=== PATIENT | female | born 1985 | race African-American/Black ===

== ENCOUNTER 2016-08-14 17:04 | Inpatient (IN) | payer OTHER ==
--- NOTE | ~2016-08-14 | HP ---
History And Physical [address] [id number] [facility] [place]. [address] NAME: SACHIN QUIROZ : 87 STATUS : ADM IN [facility]#: [id number] AGE: 31 ADM/REG DATE : 08/14/16 MR#: [id number] REPORT SERV DATE: 08/14/16 DICTATED BY: WILFREDO ORTEGA DATE: 08/14/16 REPORT STATUS : Draft TRANSCRIBED BY: MODL DATE: 08/14/16 DATE OF ADMISSION: 08/14/2016 IDENTIFYING DATA: A 31-year-old -Honduran female, who has no current PCP. CHIEF COMPLAINT: Headache, right-side facial and arm numbness. HISTORY OF PRESENT ILLNESS: This history of present illness is obtained by talking with the patient as well as her at bedside as well as speaking to the ER provider and reviewing the ER chart and [employer]. The patient states three days ago, she developed some numbness that was on her right lateral tongue and right lips. It was a tingling sensation that lasts for several hours. She states she was using some type of oil with a candle and she thought it was related to something she might have gotten on her skin. So, she washed her hands and says that it seems like her feeling return in the right side of her face. However, she noticed then they have returned with numbness of right side of her face, right-sided scalp, right side shoulder, and entire arm as a tingling, numb sensation. She states she has never had this before. It is not affecting her anywhere else. She is not having trouble with speech or swallowing or ambulation. REVIEW OF SYSTEMS: On review of systems, she states that she has had dryness in her throat and some soreness in the right side of her throat. She has also had some discomfort in her right ear and some possible decreased hearing in the right ear. Again, she has never had anything like this before. No history of head trauma. No history of seizures. She has had occasional palpitations. She has had some nausea and leg cramps. She states she has new eyeglasses. She denies any fever, chest pain, shortness of breath, abdominal pain, vomiting, diarrhea, rectal bleeding, melena, dysuria, urinary hesitancy, edema, rash, tick bites, weight changes, or hearing changes other than her right ear possibly. ALLERGIES: SHE STATES SHE IS ALLERGIC TO LATEX. PAST MEDICAL HISTORY: She denies any history of diabetes, hypertension, COPD, heart disease, stroke, seizure, peptic ulcer, biliary tract disease, liver disease, chronic kidney disease, kidney stones, thyroid disease, cancer or sleep apnea. 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 She states she was told that she had a lupus anticoagulant clotting factor and was put on aspirin. She states she had asthma as a child. HOME MEDICATIONS: Aspirin 81 mg daily, tivs-iwq-tnrobtc allergy relief tablet once a day. PAST SURGICAL HISTORY: She has had D and Cs and a right wrist cyst removed. SOCIAL HISTORY: She smokes one-half pack per day. She drinks two to three beers per day. History And Physical [address] [address] NAME: SACHIN QUIROZ : 87 STATUS : ADM IN [facility]#: [id number] AGE: 31 ADM/REG DATE : 08/14/16 MR#: [id number] REPORT SERV DATE: 08/14/16 DICTATED BY: WILFREDO ORTEGA DATE: 08/14/16 REPORT STATUS : Draft TRANSCRIBED BY: PRISCA DATE: 08/14/16 She is . She does work cleaning. FAMILY HISTORY: Mother with hypertension. Father reportedly had a stroke at age 19. Siblings reportedly healthy. DIAGNOSTIC DATA: Chest x-ray done as a PA and lateral film in the emergency room reveals normal clear lung jaffe. Normal cardiac silhouette. Normal bony architecture per my interpretation. EKG done today at 1434 hours reveals normal sinus rhythm and a completely normal EKG per my interpretation. CT scan of the brain without contrast interpreted by the radiologist as being normal. Sodium 140, potassium 3.4, chloride 104, CO2 is 25, BUN 9, creatinine 0.59, glucose 75, calcium 8.9. The CMP is normal. Troponin, less than 0.02. Urine test, negative. White count is 7.7, hemoglobin 14.5, platelets 332,000, protime is 14.5, INR 1.1. PTT is 37.6. PHYSICAL EXAMINATION: VITAL SIGNS: Temperature is 98, pulse 100, respirations 18, blood pressure 125/90, O2 saturation is 97% on room air. GENERAL: A well-developed young female, who at this time is tearful, but in no acute distress otherwise. HEENT: Head is atraumatic. Pupils are equal, round, and reactive to light. Extraocular motions are intact. She is wearing colored contacts. Ear canals and TMs normal. Normal hearing bilaterally. No inflammatory changes noted externally. Nose, noninflamed externally. Septum, midline. Nares, patent. Mouth, moist. Good gag. No redness of the throat, gums, or lips. NECK: Supple. No lymph node or thyroid enlargement. The carotids have good pulses. No bruits. I do not notice any inflammatory changes on the neck either side. LUNGS: Clear good air flow. No wheezes. No rhonchi. Normal respiratory effort. HEART: Regular without gallop, click, murmur, or rub. ABDOMEN: Bowel sounds positive. Soft, flat, nondistended, nontender. No masses. No organomegaly. EXTREMITIES: Warm. Good pulses. No clubbing. No cyanosis. No edema. NEUROLOGIC: She is alert, oriented, cooperative. She is tearful. She states she is crying because she does not know whether she is willing to stay or not. Her motor strength is 5/5 in all four extremities. No Babinski. No clonus noted. Myatll-xc-fmad testing, normal. Rapid alternating motion of the hands, normal. Balance and gait, normal. Sensation, she describes decreased sensation in the right arm circumferentially compared to the left, same with a lower face. Upper face is symmetrical and normal. No Babinski. No clonus noted. ASSESSMENT: 1. Right side upper extremity numbness. Differential diagnoses:. a. Transient ischemic attack versus cerebrovascular accident. b. Complicated migraine. c. Anxiety with conversion disorder. d. Tumor with mass effect, less likely. 2. History of multiple miscarriages and report of possible previous lupus anticoagulant. History And Physical [address] [address] NAME: SACHIN QUIROZ : 87 STATUS : ADM IN [facility]#: [id number] AGE: 31 ADM/REG DATE : 08/14/16 MR#: [id number] REPORT SERV DATE: 08/14/16 DICTATED BY: WILFREDO ORTEGA DATE: 08/14/16 REPORT STATUS : Draft TRANSCRIBED BY: PRISCA DATE: 08/14/16 3. Childhood asthma. 4. Hypokalemia. PLAN: 1. Admit to the hospital on telemetry. 2. Get MRI and MRA of the brain and MRA of the neck. 3. We will do an echocardiogram. We will ask Neurologist here. 4. We will check a strep screen because she complains of throat pain. We will replace her potassium. 5. We will check a urine drug screen. 6. We will follow up her PTT because it was mildly elevated. QUIQUE/PRISCA Wilfredo Ortega M.D. / [id number]
--- NOTE | ~2016-08-14 | CN ---
Consultation Report [facility] [address] [place]. [address] NAME: SACHIN QUIROZ : [birth year] STATUS : ADM IN PAT#: [id number] AGE: 31 ADM/REG DATE : 08/14/16 MR#: [id number] REPORT SERV DATE: 08/15/16 DICTATED BY: DATE: REPORT STATUS : Draft TRANSCRIBED BY: MODL DATE: 08/15/16 NEUROLOGY CONSULTATION DATE OF CONSULTATION: 08/15/2016 REASON FOR CONSULT: Headache as well as right-sided numbness. HISTORY OF PRESENT ILLNESS: This is a 31-year-old female, presented to [facility] on 08/14/2016 secondary to the patient reported acute onset of numbness around 5 o'clock with the patient reports numbness in the right side of face as well as right arm. Symptoms started roughly 5 a.m. The patient prior to that was noted to have episodic numbness in the right side of the face as well as right-sided arm. The patient otherwise denies any diplopia, vision difficulties, and denies any dysarthria or dysphagia. Denies any weakness and denies any gait abnormality. The patient reports symptoms resolved overnight, but currently having headache on the right side of the face as well as neck. Described the pain as a pressure-like headache with mild photophobia, but denies phonophobia with some nausea over the past week. The patient reports alternating hot and cold sensation, but otherwise denies any fevers and denies any chest pain or shortness of breath prior to the hospitalization and denies any recent illness. The patient denies similar symptoms in the past. Of note, she does have a history of multiple miscarriages in the past and previous diagnosis with the lupus anticoagulant disorder and was advised to be on aspirin. The patient does not take any control pills. The patient denies any previous history of DVTs and denies any family history of clotting disorders, DVTs, or anticoagulation usage. The patient does not have any history of sickle cell disease with sickle cell attack in the past. REVIEW OF SYSTEMS: Negative except for those mentioned in the HPI. The patient reports allergy to latex. PAST MEDICAL HISTORY: Significant for lupus anticoagulant disorder, diagnosed by high school tutor/GYN with the patient has had previous history of genetic testing which according to the patient has been negative. The patient in addition was also noted to have multiple miscarriages in the past. She currently does not take any control medication. MEDICATIONS: Home medications consist of aspirin as well as oaax-car-fstfxeb allergy relief once a day as needed. The patient denies the control usage and denies any history of anticoagulation usage. SOCIAL HISTORY: The patient's social history reports the tobacco usage, half a pack per day, two- to three-beer drinking per day. FAMILY HISTORY: Significant for hypertension with the patient's father reportedly noted to have stroke at age 19. No family history of DVT. No family history of premature heart attacks. The patient's maternal grandmother was noted to have a history of lung cancer. Consultation Report [place] [id number] [facility]. [address] NAME: SACHIN QUIROZ : [birth year] STATUS : ADM IN [facility]#: [id number] AGE: 31 ADM/REG DATE : 08/14/16 MR#: [id number] REPORT SERV DATE: 08/15/16 DICTATED BY: DATE: REPORT STATUS : Draft TRANSCRIBED BY: MODL DATE: 08/15/16 REVIEW OF SYSTEMS: Negative except for those mentioned in the HPI. PHYSICAL EXAMINATION: VITAL SIGNS: Overnight, the patient was noted to have vital signs with T-max of 98.2, heart rate of 77 to 91, respiration of 16 to 22, blood pressure of 120 to 126 over 72 to 75. GENERAL: The patient is a well developed, well nourished, no acute distress. CARDIOVASCULAR: Regular rate and rhythm. No carotid bruits were otherwise auscultated. PULMONARY: Clear to auscultation bilaterally. NEUROLOGICAL EXAMINATION: Generally, the patient is alert and oriented to person, place, year, and month and follows simple and two-step commands. No dysarthria. No aphasia was noted at the time of evaluation. Intact registration and recall. Cranial nerves II to XII, pupil were round reactive to light. Extraocular eye movement was noted to be intact with intact peripheral vision. Symmetrical facial expression. Sensation midline. Tongue normal. Normal palatal movement. Normal hearing. The patient demonstrated 5/5 bilateral upper and lower extremity strength. Normal muscle, bulk, and tone. Deep tendon reflex was 2+ throughout. Symmetrical sensation bilaterally. Normal uvkkrg-on-eoly examination without ataxia. The patient demonstrated normal station and stable gait. LABORATORY STUDIES: Demonstrated white blood cell count of 10.3, hemoglobin of 13.9, hematocrit of 40.6, platelet count of 305. INR of 1.2. Chemistry panel: Sodium 140, potassium 3.4, chloride of 104, bicarb of 25, BUN of 9, creatinine 0.59, glucose of 75, calcium of 8.9. Serum cholesterol of 203, HDL of 56, LDL of 131, triglyceride of 82. Hemoglobin A1c of 5.1. Serum TSH of 0.832 and serum HCG is negative. The patient was noted to have urine drug screen positive for opiates, but otherwise negative. Urinalysis demonstrated negative leukocyte esterase, negative nitrite. CT scan of the brain is otherwise negative. IMPRESSION: 1. Headache. 2. The patient was noted to have a pressure-like headache on the right side of the head with mild photophobia and nausea at the time of evaluation. Otherwise, the patient's right-sided numbness has since resolved with NIH Stroke Scale of 0, concern for possible stroke secondary to hypercoagulable state versus of venous sinus thrombosis versus complex migraine. We will continue aspirin for now. We will continue Lipitor. We will check MRI as well as MRV of the head. We will start the patient on Depakote 125 mg IV b.i.d. for headache. 3. Tobacco abuse. Counseled the patient regarding smoking cessation. RECOMMENDATION: 1. MRI of the brain. 2. MRV of the head. Consultation Report [address] [place]. [address] NAME: SACHIN QUIROZ : 87 STATUS : ADM IN [facility]#: [id number] AGE: 31 ADM/REG DATE : 08/14/16 MR#: [id number] REPORT SERV DATE: 08/15/16 DICTATED BY: DATE: REPORT STATUS : Draft TRANSCRIBED BY: MODL DATE: 08/15/16 3. NICOLÁS, double-stranded DNA complement C3-C4 and intact cardiolipin antibodies. 4. Aspirin and Lipitor. 5. Carotid Doppler study and echocardiogram pending. 6. Depakote 125 mg IV b.i.d. [facility] Presley Alegria MD / [id number] CC: Lucho Ortega M.D.
--- NOTE | ~2016-08-14 | DS ---
Discharge Summary [facility] [address] [place]. [address] NAME: SACHIN QUIROZ : 87 STATUS : DIS IN PAT#: [id number] AGE: 31 ADM/REG DATE : 08/14/16 MR#: [id number] REPORT SERV DATE: 08/17/16 DICTATED BY: WILFREDO ORTGEA DATE: 08/16/16 REPORT STATUS : Draft TRANSCRIBED BY: MODL DATE: 08/16/16 ADMISSION DATE: 08/14/2016 DISCHARGE DATE: 08/16/2016 CONSULTANTS: Dr. Alegria, Neurology. DISCHARGE DIAGNOSES: 1. Acute right-sided headache with numbness right arm and right face. 2. 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 3. Childhood asthma. 4. Viral upper respiratory tract infection versus asthmatic rhinitis. HISTORY: This patient presented to the emergency room at [facility] describing three days of headache along with numbness on the right lateral tongue, right lateral lips, face and neck, and right upper arm. Because of this, she was referred to our team for inpatient care. The patient also has a history of multiple miscarriages in the past. She also states she was told by her SENIOR RESEARCH SCIENTIST that she had lupus anticoagulant and was placed on aspirin. The patient has no history of DVT or pulmonary emboli or strokes or other thrombotic events. HOSPITAL COURSE: She was placed on telemetry. She had a CT scan of the brain without contrast, which was normal. She underwent MRI of the brain which was normal. She had an MRV of the brain which was normal other than some mild diffuse sinusitis without air fluid levels. Neurology wanted to repeat the hypercoagulable lab tests so anticardiolipin antibodies, double-stranded DNA have been ordered along with NICOLÁS. These are still pending at this time. Complement 3 and complement 4 levels were normal. TSH was normal. Creatinine is normal. The patient's numbness resolved. The patient had some headache. Dr. Alegria gave her some Depakote intravenously which seemed to help. The patient had some nasal congestion, some sneezing, some postnasal drainage, and cough. No fever. She was given some Claritin and Flonase for this. We are recommending she establish with a local PCP for longitudinal followup. Her urine test was negative. Since she is not now, and she has no history of actual thrombotic event, we are recommending she stay on just the aspirin for the anti- phospholipid antibody that is suspected. Dr. Alegria has asked for her to stay on Lipitor for the possibility that this was a TIA and secondary prophylaxis. DISCHARGE MEDICATIONS: Her discharge medications will be aspirin 81 mg daily, Lipitor 80 mg at bedtime, Flonase nasal spray b.i.d., Claritin 10 mg daily, and Dr. Alegria has not yet decided whether she is going to recommend the patient to take any Depakote orally, she can otherwise take Tylenol. Discharge Summary [address] [address] NAME: ASCHIN QUIROZ : 87 STATUS : DIS IN PAT#: [id number] AGE: 31 ADM/REG DATE : 08/14/16 MR#: [id number] REPORT SERV DATE: 08/17/16 DICTATED BY: WILFREDO ORTEGA DATE: 08/16/16 REPORT STATUS : Draft TRANSCRIBED BY: PRISCA DATE: 08/16/16 QUIQUE/PRISCA Wilfredo Ortega M.D. / [id number] CC: Wilfredo Ortega M.D.
[2016-08-14 15:27] LABS: BASOPHILS 0.6 %; BASOPHILS ABSOLUTE 0.05 10/3/uL (0.0-0.16); EOSINOPHILS 0.9 %; EOSINOPHILS ABSOLUTE 0.07 10/3/uL (0.0-0.53); HEMOGLOBIN 14.5 g/dL (12.0-16.0); IMMATURE GRANULOCYTES 0.1 %; IMMATURE GRANULOCYTES ABSOLUTE 0.01 10/3/uL (0.0-0.11); LYMPHOCYTES 15.3 %; LYMPHOCYTES ABSOLUTE 1.18 10/3/uL (0.67-4.30); MEAN CORPUSCULAR HEMOGLOB 30.5 pg (26.0-34.0); MEAN PLATELET VOLUME 10.7 fL (9.2-13.0); MONOCYTES 6.6 %; MONOCYTES ABSOLUTE 0.51 10/3/uL (0.21-1.20); NEUTROPHILS 76.5 %; NEUTROPHILS ABSOLUTE 5.91 10/3/uL (2.02-8.40); PLATELET COUNT 332 10/3/uL (150-400); RBC DISTRIBUTION WIDTH 13.5 % (12.0-16.0); RED CELL COUNT 4.75 10/6/uL (4.0-5.6)
[2016-08-14 15:28] LABS: ER CBC TAT 0 Hrs 07 Mins; HEMATOCRIT 42.7 % (36.0-48.0); MANUAL DIFF NO %; MEAN CORPUSCULAR VOLUME 89.9 fL (80-100); WHITE BLOOD CELLS 7.7 10/3/uL (4.5-10.5)
[2016-08-14 15:34] LABS: INTERNATIONAL NORMAL RATI 1.1 UNITS (-); PARTIAL THROMBO TIME 37.6 SEC (22.5-37.2); PROTIME (NOT ORD) 14.5 SEC (12.0-14.5)
[2016-08-14 15:43] LABS: ALBUMIN 4.2 G/DL (3.5-5.0); ALKALINE PHOSPHATASE 107 U/L (45-117); BUN (BLOOD UREA NITROGEN) 9 MG/DL (6-23); CALCIUM, SERUM 8.9 MG/DL (8.5-10.4); CHLORIDE, SERUM 104 MMOL/L (96-112); CO2 (CARBON DIOXIDE) 25 MMOL/L (24-34); CREATININE 0.59 MG/DL (0.55-1.02); GFR AFRICAN AMERICAN 143 ML/MIN (>=60); GFR NON AFRICAN AMERICAN 123 ML/MIN (>=60); GLOBULIN 4.1 G/DL (2.5-4.1); GLUCOSE, SERUM 75 MG/DL (60-99); POTASSIUM, SERUM 3.4 MMOL/L (3.5-5.3); SGOT(AST) 8 U/L (5-40); SGPT(ALT) 15 U/L (5-65); SODIUM, SERUM 140 MMOL/L (135-148); TOTAL BILIRUBIN 1.1 MG/DL (0-1.2); TOTAL PROTEIN 8.3 G/DL (6.0-8.5); TROPONIN I <0.02 NG/ML (<0.05)
[2016-08-14] MEDS ORDERED: ALLERGY RELIEF OTC PO (17:26)
[2016-08-14] MEDS ORDERED: HALF81 PO (17:26)
[2016-08-15 00:21] LABS: BASOPHILS 0.7 %; BASOPHILS ABSOLUTE 0.07 10/3/uL (0.0-0.16); EOSINOPHILS 2.1 %; EOSINOPHILS ABSOLUTE 0.22 10/3/uL (0.0-0.53); HEMATOCRIT 40.6 % (36.0-48.0); HEMOGLOBIN 13.9 g/dL (12.0-16.0); IMMATURE GRANULOCYTES 0.2 %; IMMATURE GRANULOCYTES ABSOLUTE 0.02 10/3/uL (0.0-0.11); LYMPHOCYTES 13.3 %; LYMPHOCYTES ABSOLUTE 1.37 10/3/uL (0.67-4.30); MEAN CORPUS HGB CONC 34.2 g/dL (32.0-36.0); MEAN CORPUSCULAR VOLUME 90.4 fL (80-100); MEAN PLATELET VOLUME 10.9 fL (9.2-13.0); MONOCYTES 5.7 %; MONOCYTES ABSOLUTE 0.59 10/3/uL (0.21-1.20); NEUTROPHILS ABSOLUTE 8.04 10/3/uL (2.02-8.40); PLATELET COUNT 305 10/3/uL (150-400); RBC DISTRIBUTION WIDTH 13.8 % (12.0-16.0); RED CELL COUNT 4.49 10/6/uL (4.0-5.6); WHITE BLOOD CELLS 10.3 10/3/uL (4.5-10.5)
[2016-08-15 00:31] LABS: MANUAL DIFF NO %
[2016-08-15 00:43] LABS: CHOL/HDL RATIO(NOT ORDER) 3.6 (0-5); CHOLESTEROL 203 MG/DL (< 200); CPK (IF ELEVATED MB BANDS) 97 U/L (0-200); HDL CHOLESTEROL 56 MG/DL (> 49); LDL CHOLESTEROL 131 MG/DL (< 130); NON-HDL CHOLESTEROL 147 MG/DL (< 160); TRIGLYCERIDE 82 MG/DL (< 150); TROPONIN I <0.02 NG/ML (<0.05); ULTRASENSITIVE TSH 0.832 MCIU/ML (0.358-3.740)
[2016-08-15 04:05] LABS: ASCORBIC ACID (UR NOT ORDER) NEG (NEG); BILIRUBIN, URINE NEGATIVE (NEG); KETONE, URINE TRACE MG/DL (NEG); LEUKOCYTE ESTERASE(NOT OR NEG (NEG); WBC (NOT ORDERED) (RFLEX) < 1 (0-5)
[2016-08-15 04:33] LABS: AMPHETAMINES (NOT ORD) NEG (NEG); BARBITURATES (NOT ORDERED NEG (NEG); BENZODIAZEPINES (NOT ORD) NEG (NEG); CANNABINOIDS (THC) NEG (NEG); COCAINE (NOT ORDERED) NEG (NEG); OPIATES POS (NEG); PHENCYCLIDINE(PCP) NEG (NEG); TRICYCLICS NEG (NEG)
[2016-08-15 09:26] LABS: INTERNATIONAL NORMAL RATI 1.2 UNITS (-); PARTIAL THROMBO TIME 37.8 SEC (22.5-37.2); PROTIME (NOT ORD) 15.2 SEC (12.0-14.5)
[2016-08-15 10:30] LABS: CPK (IF ELEVATED MB BANDS) 92 U/L (0-200); POTASSIUM, SERUM 3.8 MMOL/L (3.5-5.3); TROPONIN I <0.02 NG/ML (<0.05)
[2016-08-16 06:37] LABS: COMPLEMENT C4 24.9 MG/DL (16-47)
[2016-08-16 11:38] LABS: ANA TITER <1:40 TITER
[2016-08-16] MEDS ORDERED: TOPAMAX25 PO (19:40)
[2016-08-16] MEDS ORDERED: FLONASE (20:01)
== END 2016-08-16 22:00 | disposition home or self-care (01) | DRG 69 ==
LOC: ER 17:04 → 1SO 20:34
PROVIDERS: Hospitalist; Physician Assistant; Psychiatry & Neurology Neurology
DX: G45.9 Transient cerebral ischemic attack, unspecified (principal); D68.61 Antiphospholipid syndrome; G43.109 Migraine with aura, not intractable, without status migrainosus; E87.6 Hypokalemia; F41.9 Anxiety disorder, unspecified; J45.909 Unspecified asthma, uncomplicated; J06.9 Acute upper respiratory infection, unspecified; F17.210 Nicotine dependence, cigarettes, uncomplicated; Z79.82 Long term (current) use of aspirin; Z91.040 Latex allergy status
CPT/HCPCS: 70450; 70544; 70551; 71020; 80053; 80061; 80305; 81001; 82550; 83036; 84132; 84443; 84484; 84703; 85025; 85610; 85730; 86039; 86147; 86160; 86225; 87070; 87880; 93005; 93880; 97161-GP; 97165-GO; 99285; A9270-GY; C8929; G8978-CH-GP; G8979-CH-GP; G8980-CH-GP; G8987-CH-GO; G8988-CH-GO; G8989-CH-GO; Q9957